=== PATIENT | female | born 1970 | race African-American/Black ===

== ENCOUNTER 2019-04-30 08:08 | Emergency (ER) | payer MEDICAID ==
[~2019-04-30] VITALS: Ht 162.6 cm; Wt 75.0 kg
[~2019-04-30 08:08] MED LIST: CARB200T
[2019-04-30] MEDS ORDERED: KETOROLAC 60MG/2ML VIAL IM ONE (09:00)
[2019-04-30 09:16] VITALS: BP 109/65
== END 2019-04-30 09:27 | disposition home or self-care (01) ==
LOC: ER 08:08
DX: R51 Headache (principal); R56.9 Unspecified convulsions; Z88.8 Allergy status to other drugs, medicaments and biological substances
CPT/HCPCS: 96372; 99283; J1885

== ENCOUNTER 2019-05-02 00:16 | Emergency (ER) | payer MEDICAID ==
[~2019-05-02] VITALS: Ht 152.4 cm; Wt 68.0 kg
[2019-05-02 00:23] VITALS: BP 153/89
== END 2019-05-02 03:10 | disposition left against medical advice (07) ==
LOC: ER 00:30
DX: R51 Headache (principal); Z53.21 Procedure and treatment not carried out due to patient leaving prior to being seen by health care provider